=== PATIENT | female | born 2000 | race Caucasian/White ===

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

== ENCOUNTER → 2021-08-21 17:13 | Outpatient (CLI) | payer OTHER, MEDICAID, SELFPAY ==
[2021-08-21 19:07] LABS: Add Manual Diff / Slide Review NO; Basophils Absolute Auto 0 /uL (0-100); Basophils Percent Auto 0.3 % (0-2); Eosinophils Absolute Auto 0 /uL (0-450); Eosinophils Percent Auto 0.4 % (2-4); Hematocrit 35.5 % (36-46); Hemoglobin 12.4 g/dL (12.0-16.0); Lymphocytes Absolute Auto 1800 /uL (1100-4500); Mean Corpuscular Hemoglobin 30.1 PG (26-34); Mean Corpuscular Volume 86.1 fL (80-100); Monocytes Absolute Auto 500 /uL (0-900); Monocytes Percent Auto 5.4 % (3-14); Neutrophils Absolute Auto 7300 /uL (1500-7000); Neutrophils Percent Auto 74.9 % (50-75); Platelet Count 162 X10^3/uL (150-400); Red Blood Cell Count 4.12 X10^6/uL (4.0-5.2); Red Cell Distribution Width 13.1 % (11.6-14.8); White Blood Cell Count 9.7 X10^3/uL (4.5-11.0)
[2021-08-21 19:12] LABS: HIV 1 & 2 Ab/Ag 4th Gen Combo NEGATIVE (NEGATIVE); Hep C Virus Ab w/Reflex Quant NEGATIVE s/c (NEGATIVE); Hepatitis B Surface Antigen NEGATIVE s/c (NEGATIVE); Rubella Antibody IgG 2.5 IU/mL (>15)
[2021-08-22 04:36] LABS: RPR Screen Non Reactive (Non Reactive)
[2021-08-22 12:41] LABS: Varicella IgG Antibody 407 index (Immune >165)
[2021-08-23 22:13] LABS: AFP, Serum 49.5 ng/mL (.); Calc Gestational Age Ultrasound (.); Inhibin A, Dimeric 96.85 pg/mL (.); Inhibin A, MoM 0.57 (.); Maternal Ethnicity Caucasian (.); Maternal Weight 125 lbs (.); Number of Fetuses No (.); OSBR Risk 1 IN 9540 (.); Results Report (.); Test Results *Screen Negative* (.); hCG, Serum 19197 mIU/mL (.)
== END ==
PROVIDERS: Referring Provider Obstetrics & Gynecology; Visit Provider Obstetrics & Gynecology
DX: Z34.02 Encounter for supervision of normal first pregnancy, second trimester (principal); Z3A.17 17 weeks gestation of pregnancy
CPT/HCPCS: 36415; 80055; 82105; 82677; 84702; 86336; 86787; 86803; 86850; 86900; 86901; 87389

== ENCOUNTER → 2021-09-14 14:06 | Outpatient (CLI) | payer OTHER, MEDICAID, SELFPAY ==
--- NOTE | 2021-09-14 14:07 | DI.US.S_ITS ---
PROCEDURE: US OB >= 14 WEEKS FETUS INDICATIONS: anatomy scan OUTSIDE/PRIOR DATING DATA: Last menstrual period (LMP): 04/29/2021. LMP-based estimated date of delivery (CLARA): 02/03/2022. First dating scan (date and location): 07/18/2021; Dr. Moya's office. Estimated date of delivery (CLARA) from first dating scan: 01/28/2022. The calculations are made using the ultrasound CLARA of 01/28/2022. TECHNIQUE: Real-time scanning was performed of the fetus, with image documentation and biometric measurements. Endovaginal scanning: Not performed. COMPARISON: [facility], [place], US OB >= 14 WEEKS FETUS, 07/18/2021, 17:30. FINDINGS: General: A single living intrauterine gestation is present. Presentation: Cephalic. Placenta: Placental position is anterior, without previa. Amniotic fluid index: 11.7 cm, normal range is 5-24 cm. Single deepest vertical pocket is 4.6 cm. heart rate: 155 beats per minute. Maternal cervical canal: 0.8 cm long. Normal lower limit is 2.5 cm. biometrics: Biparietal diameter: 20 weeks 4 days Head circumference: 20 weeks 2 days Abdominal circumference: 20 weeks 2 days Femur length: 19 weeks 6 days Clinically estimated gestational age: 20 weeks 4 days Composite gestational age from present scan: 20 weeks 2 days Estimated weight and percentile: 322; 22% Anatomic survey: Neuro: Ventricles are non-dilated at less than 10 mm. Cisterna magna is normal at 3-11 mm. Cerebellum is normal in size and morphology. Nuchal skin fold: Normal at less than 6 mm between 14-21 weeks gestational age. Face: Not well seen due to lie. Spine: No evidence for spina bifida. Heart: 4-chambered heart is present, with normal ventricular outflow tracts. Diaphragm: Diaphragm is intact. Stomach: Left-sided stomach is present. Kidneys: No hydronephrosis. Normal is less than 5 mm in 2nd trimester, less than 7 mm in 3rd trimester. Cord: 3-vessel cord. The cord insertion is not well seen. Bladder: Normal in size. Extremities: All 4 extremities identified. IMPRESSION: 1. A single living intrauterine gestation with appropriate interval growth. 2. facial structures and cord insertion are not well seen. Follow-up examination suggested. 3. Otherwise normal anatomic survey. We strive to produce accurate, complete, and clear reports of imaging services. To assist us in improving patient care, this report was composed using standard report templates and voice recognition software. Therefore, it may contain abnormal punctuation, insertions and/or omissions. Occasional wrong-word or sound-alike substitutions may occur. Though we review the report and make efforts to correct it, we do recommend that the report be read carefully in proper context to recognize any text inaccuracies. Dictated by: Cornelius Escobar M.D. on 09/14/2021 at 16:27 Approved by: Cornelius Escobar M.D. on 09/14/2021 at 16:33
== END ==
PROVIDERS: Referring Provider Obstetrics & Gynecology; Visit Provider Obstetrics & Gynecology
DX: Z34.02 Encounter for supervision of normal first pregnancy, second trimester (principal); Z3A.20 20 weeks gestation of pregnancy
CPT/HCPCS: 76811

== ENCOUNTER → 2021-09-18 14:47 | Outpatient (CLI) | payer OTHER, MEDICAID, SELFPAY ==
[2021-09-18 20:08] LABS: Appearance Urine UA CLOUDY; Bilirubin Urine UA NEGATIVE (NEGATIVE); Color Urine UA YELLOW; Glucose Urine UA NEGATIVE (Negative); Ketones Urine UA NEGATIVE (NEGATIVE); Leukocyte Esterase Urine UA NEGATIVE (NEGATIVE); Nitrite Urine UA NEGATIVE (Negative); Occult Blood Urine UA NEGATIVE (Negative); Protein Urine UA NEGATIVE (Negative); Specific Gravity Urine UA 1.015 (1.000-1.035); Urobilinogen Urine UA 0.2 E.U./dL (0.2)
== END ==
PROVIDERS: PCP Obstetrics & Gynecology; Visit Provider Obstetrics & Gynecology
DX: Z34.00 Encounter for supervision of normal first pregnancy, unspecified trimester (principal)
CPT/HCPCS: 81003; 87086

== ENCOUNTER → 2021-10-27 10:03 | Outpatient (CLI) | payer OTHER, MEDICAID, SELFPAY ==
[2021-10-27 12:30] LABS: Hematocrit 35.9 % (36-46); Hemoglobin 12.3 g/dL (12.0-16.0)
[2021-10-27 12:51] LABS: GTT (PREG) 1 Hour PP 50gm Dose 126 mg/dL (76-139)
== END ==
PROVIDERS: Referring Provider Obstetrics & Gynecology; Visit Provider Obstetrics & Gynecology
DX: Z34.02 Encounter for supervision of normal first pregnancy, second trimester (principal); Z3A.21 21 weeks gestation of pregnancy
CPT/HCPCS: 36415; 82950; 85014; 85018

== ENCOUNTER → 2021-11-28 13:16 | Outpatient (CLI) | payer OTHER, MEDICAID, SELFPAY ==
[2021-11-28 15:14] LABS: Urine N gonorrhoeae NOT DETECTED
[2021-11-28 15:50] LABS: Urine Chlamydia NOT DETECTED
== END ==
PROVIDERS: Visit Provider Obstetrics & Gynecology
DX: Z34.03 Encounter for supervision of normal first pregnancy, third trimester (principal); Z3A.31 31 weeks gestation of pregnancy
CPT/HCPCS: 87491; 87591

== ENCOUNTER → 2022-01-15 12:07 | Outpatient (CLI) | payer OTHER, MEDICAID, SELFPAY ==
[2022-01-16 14:49] LABS: Strep Grp B PCR NEG for Grp B Strep
== END ==
PROVIDERS: Visit Provider Obstetrics & Gynecology
DX: Z34.03 Encounter for supervision of normal first pregnancy, third trimester (principal); R35.0 Frequency of micturition; Z3A.38 38 weeks gestation of pregnancy
CPT/HCPCS: 87086; 87653

== ENCOUNTER 2022-01-22 19:25 | Inpatient (IN) | payer OTHER, MEDICAID, SELFPAY ==
[2022-01-22] MEDS: LACTATED RINGERS 1,000 ML 100 ML IV ×2 (19:50→21:08)
[2022-01-22 20:13] LABS: Add Manual Diff / Slide Review NO; Basophils Absolute Auto 100 /uL (0-100); Basophils Percent Auto 0.6 % (0-2); Eosinophils Absolute Auto 0 /uL (0-450); Eosinophils Percent Auto 0.1 % (2-4); Hematocrit 37.9 % (36-46); Hemoglobin 12.6 g/dL (12.0-16.0); Lymphocytes Absolute Auto 1400 /uL (1100-4500); Lymphocytes Percent Auto 11.3 % (25-40); Mean Corpuscular HGB Conc 33.3 % (30-36); Mean Corpuscular Hemoglobin 29.4 PG (26-34); Mean Corpuscular Volume 88.2 fL (80-100); Monocytes Absolute Auto 600 /uL (0-900); Monocytes Percent Auto 4.4 % (3-14); Neutrophils Absolute Auto 10600 /uL (1500-7000); Neutrophils Percent Auto 83.6 % (50-75); Platelet Count 237 X10^3/uL (150-400); Red Cell Distribution Width 13.3 % (11.6-14.8); White Blood Cell Count 12.7 X10^3/uL (4.5-11.0)
[2022-01-22] MEDS: FENT 2MCG/ML BUPIV 0.125% EPI 200 MCG/100 ML PLAST..BAG 8 MCG EPIDURAL (20:23)
--- NOTE | 2022-01-22 20:25 | PM.OBHP.IH.1 ---
OB HPI Date/Time Date of admission: 01/22/22 Date Patient Seen: 01/22/22 History of Present Condition Chief complaint: Labor CLARA Calculator Estimated Delivery Date Method Current WG Current Estimate 01/28/22 Ultrasound #2 39w 1d Other Estimates 02/03/22 LMP (Uncertain) 38w 2d 02/02/22 Ultrasound #1 38w 3d Estimated Gestational Age (weeks): 39w1d : 1 Para: 0 Narrative: 21-year-old at 39 weeks and 1 day in active labor. Contractions have been increasing in intensity over the last several hours. Denies leaking or bleeding and reports good movement. There was concern during her for growth restriction however evaluation with maternal medicine was normal. Last estimated weight 5 lb 13 oz, 41st percentile at 35 weeks. care: good care, initiated at week # (12), number of visits (10) and pounds weight gain (37) Dating criteria OB: based on 1st trimester US only Ultrasounds: normal 1st trimester US and normal mid trimester US Obstetrical complications: none Medical complications OB: none Preadmission Labs Last OB Lab Results: Blood Type A Positive 08/21/21 17: Antibody Screen Negative 08/21/21 17:22 Hematocrit 37.9 % (36-46) 01/22/22 20:00 Hemoglobin 12.6 g/dL (12.0-16.0) 01/22/22 20:00 Hepatitis B Surface Antigen Negative s/c (NEGATIVE) 08/21/21 17:22 Hepatitis C Antibody Negative s/c (NEGATIVE) 08/21/21 17:22 Rubella Antibody 2.5 IU/mL (>15) L 08/21/21 17:22 Varicella-Zoster IgG Antibody 407 index (Immune >165) 08/21/21 17:22 Glucose 1 Hour 126 mg/dL (76-139) 10/27/21 11:35 Group B Streptococcus (PCR) Neg for grp b strep 01/15/22 12:07 -: Chlamydia screen: negative and Urine: negative Genetic Screens: Quad screen: Normal External Labs -: Urine: negative Evaluation Evaluation Baseline heart rate: 130 Variability: Moderate (11-25) monitor accelerations: Present Monitor Decelerations: Variable (one isolated variable when laying flat in bed) Contraction Frequency (minutes): 3 Status: Category ll Dilation (cm): 6 Effacement (%): 100 station: +1 PFSH Medical History Bipolar 1 disorder Chlamydia Gonorrhea History of anxiety MRSA (methicillin resistant Staphylococcus aureus) Substance abuse UTI (urinary tract infection) during Surgical History No history of previous surgery Family History Mother Cervical cancer Social History marital status: unmarried,single (living with a grandmother) number of children: 0 household members: family lives independently: Yes housing: house pets and animals: Yes (goldfish, aware Toxoplasmosisi) education level: high school occupational status: employed current occupational exposures/hazards: No special brianna needs: No seatbelt use: always water heater temp set < 120 deg: Yes (will check) working smoke detector in home: Yes fire extinguisher in home: Yes firearms in home: No do you feel safe at home: Yes Smoking Status: Former smoker (quit with positive test) second hand exposure: No substance use type: marijuana (for nausea and sleep - will try unisome and B6) during the past year weight has: remained stable well-balanced diet: about half the time daily servings fruits/ve-1 caffeine: No (200 mg per day) Type(s) of exercise: none additional social history: No significant social history Meds Home Medications and Allergies Home Medications Medication Instructions Recorded Confirmed Type prenat.vits,carmen,lip-[id number] 1 tab PO DAILY 07/06/21 01/22/22 History ondansetron 4 mg disintegrating 4 mg PO Q8H nausea #20 tabs 07/21/21 01/22/22 Rx tablet Allergies Allergy/AdvReac Type Severity Reaction Status Date / Time No Known Allergies Allergy Uncoded 01/22/22 13:06 Review of Systems Review of Systems ROS: Yes All systems reviewed with the patient and are negative except as otherwise documented OB Exam Narrative Exam Narrative: Temperature 36.4? blood pressure 125/74 heart rate 89 HENMT Head: normal to inspection Mouth: oral mucosae normal Eyes General: appearance normal, both eyes and all related structures Resp Effort & Inspection: normal respiratory effort Auscultation: clear to auscultation bilaterally Cardio Rate: regular rate Rhythm: regular rhythm Extremities Lower extremity: Yes normal to inspection; No edema Estimated Weight (lbs): 7 Objective Labs Result Diagrams: 01/22/22 20:00 Labs: Laboratory Results - last 24 hr 01/22/22 20:00 WBC 12.7 H RBC 4.30 Hgb 12.6 Hct 37.9 MCV 88.2 MCH 29.4 MCHC 33.3 RDW 13.3 Plt Count 237 Neut % (Auto) 83.6 H Lymph % (Auto) 11.3 L Mathews % (Auto) 4.4 Eos % (Auto) 0.1 L Baso % (Auto) 0.6 Neut # (Auto) 91256 H Lymph # (Auto) 1400 Mathews # (Auto) 600 Eos # (Auto) 0 Baso # (Auto) 100 Assessment and Plan Assessment and Plan Assessment and Plan narrative: 21-year-old at 39 weeks and 1 day now getting comfortable with epidural. GBS negative. Will recheck cervix after comfortable with epidural and consider AROM. Anticipate .
[2022-01-22 20:49] VITALS: BP 150/88
[2022-01-22 21:09] LABS: COVID19 -Nasal RAPID Negative (Negative)
[2022-01-22] MEDS: ONDANSETRON 4 MG/2 ML INJ IV (21:23)
[2022-01-22] MEDS: OXYTOCIN PREMIX 30 UNIT/500 ML PLAST..BAG 200 UNIT IV (21:54)
[2022-01-22] MEDS: LIDOCAINE 1% 20 ML INJ (22:01)
--- NOTE | 2022-01-22 22:11 | P.PCNOB_ITS ---
Labor & Delivery Delivery date: 01/22/22 Delivery augmentation: rupture of membranes Delivery monitor: external FHT Route of delivery: L&D Laceration Description: Labial (First-degree left labial laceration) Delivery repair: vicryl Estimated blood loss (mL): 100 Anesthesia Type: Epidural Narrative: Patient is a 21-year-old at 39 weeks and 1 day who gave on 01/22/22 at 21:48. Hospital problems: 39 weeks of Spontaneous vaginal delivery Epidural analgesia STAGE I: Labor Patient presented in active labor and received an epidural. Artificial rupture of membranes at 21:27 with a scant amount of blood-tinged fluid. She was complete at 21:28. EFM primarily category 1 throughout stage I the exception of rare variable decelerations. Patient was comfortable with her epidural until she was complete. STAGE II: Delivery Patient was complete and pushed for 20 minutes. There were deep variable decelerations with pushing with good return to baseline in between. She went on to deliver a vigorous male infant. was vertex and VALENTIN. There was a tight nuchal cord which she delivered through. was immediately placed on mother's abdomen. Apgars were 9 and 9. No resuscitation of the required beyond drying and stimulating. STAGE III: Placenta/Cord Placenta delivered at 21:56 after active management and appeared intact with a three-vessel cord. Pitocin bolus given via the IV after delivery of placenta. Vagina was inspected. Patient was found to have a very superficial right labial laceration which was not repaired as well as a left labial laceration. The left labial laceration was repaired with 4-0 Vicryl in the usual fashion with good hemostasis. Uterine fundus firm well below umbilicus after repair. EBL: 100 mL. Needle and sponge counts were correct. The vagina was inspected and no items were left in situ. Patient was doing well with [place], her and partner at bedside. Baby 1: gender: Male Presentation: vertex Position: Right Occiput Anterior Placenta delivery description: Spontaneous Cord Vessel Description: 3 Vessels and Nuchal Cord (delivered through) score (1 min): 9 score (5 min): 9 Plan for aftercare: Routine care
[2022-01-23] MEDS: IBUPROFEN 600 MG TABLET PO (09:23)
[2022-01-23] MEDS: PRENATAL VIT,CALC/IRON/FOLIC 1 TABLET 1 TAB PO (09:24)
[2022-01-24] MEDS: PRENATAL VIT,CALC/IRON/FOLIC 1 TABLET 1 TAB PO ×2 (09:01→09:02)
[2022-01-24] MEDS: DOCUSATE 100 MG CAPSULE PO (09:01)
[2022-01-24 10:14] VITALS: BP 129/86; PULSE 97; RESP 16; TEMP 37.2
--- NOTE | 2022-01-24 10:14 | P.DS_ITS ---
Discharge Providers Provider Date of admission: 01/22/22 19:25 Discharge Date: 01/24/22 Primary care physician: Doctor Kaley MD Consults: 01/23/22 22:10 Consult to Faith Doctor Routine Comment: Discharge provider: Belen Moya MD Summary Hospital Course Date Patient Seen: 01/24/22 Time Patient Seen: 10:14 Diagnoses: 39-,1/7 weeks gestation Artificial rupture of membranes Epidural analgesia Spontaneous vaginal delivery First-degree left labial laceration and repair Hospital Course: Patient is a 21-year-old 1 para 1 who presented at 39-,1/7 weeks gestation in active labor at 7 cm. She received an epidural for pain management. She had artificial rupture of membranes with clear amniotic fluid. She had a 20 minute second stage and had a spontaneous vaginal delivery without complication. She had a left labial laceration which was repaired. Her course was unremarkable. She is discharged home on day #1. Peripartum Data Infant Delivery Method: Natural Vaginal Laceration Description: Labial (First-degree, left) Episiotomy description: None Procedures: Epidural analgesia Artificial rupture of membranes Spontaneous vaginal delivery Left labial laceration repair complications: none [place] 1: Gender: Male Disposition of : home Status at Discharge Cognitive/behavioral status at discharge: oriented Functional status at discharge: independent ambulation Overall status at discharge: patient is progressing back to baseline Time Spent with Patient Time attestation: Total time spent providing and/or coordinating discharge services: Time spent: Less than 30 minutes Objective Labs Result Diagrams: 01/22/22 20:00 Exam Narrative Exam Narrative: Generally: Patient is sitting up in bed, no acute distress Fundus: Firm at U -2 Extremities: No edema, negative Homans Discharge Plan Discharge Plan Patient Disposition: Home Provider Discharge Comment: Call with fever, chills, or bleeding vaginally more than a pad in an hour Ibuprofen 600 mg every 6 hours as needed for cramping Tylenol 650 mg every 6 hours as needed Discharge orders & Medications Prescriptions: Continued prenat.vits,carmen,[id number] Tablet 1 tab PO DAILY Discontinued ondansetron 4 mg tablet,disintegrating 4 mg PO Q8H Qty: 20 2RF Follow up/Referrals: Belen Moya MD [Physician] - 6 Weeks Diet/Activity/Treatments Diet: Regular Activity: Nothing in the vagina for 6 weeks Skin/Wound/Dressing Care Report to your healthcare provider any signs of infection, such as:: chills, fever, increased pain and unusual drainage Visit Report/Discharge Packet Instructions: DI for Labor and Delivery, Vaginal Discharge Data Primary Care Provider: Miscellaneous,Doctor
[2022-01-24] MEDS: MEASLES,MUMPS,RUBELLA VACC/PF 0.5 ML VIAL SUBCUT (10:58)
== END 2022-01-24 11:41 | disposition home or self-care (01) | DRG 560 ==
PROVIDERS: Admitting Provider Family Medicine; Referring Provider Family Medicine; Visit Provider Family Medicine
DX: O76 Abnormality in fetal heart rate and rhythm complicating labor and delivery (principal); Z3A.39 39 weeks gestation of pregnancy; Z37.0 Single live birth; O70.0 First degree perineal laceration during delivery; Z20.822 Contact with and (suspected) exposure to COVID-19
CPT/HCPCS: 01967; 36415; 59050; 59400; 59409; 85025; 86850; 86900; 86901; 87635; C9803; G0379; J2405; J2590

== ENCOUNTER → 2023-08-13 15:41 | Outpatient (CLI) | payer OTHER, MEDICAID, SELFPAY | PROVIDERS: Visit Provider Obstetrics & Gynecology | DX: Z34.80 Encounter for supervision of other normal pregnancy, unspecified trimester (principal) | CPT/HCPCS: 87086 ==